=== PATIENT | male | born 1950 | race Caucasian/White ===

== ENCOUNTER 2017-01-06 11:46 | Emergency (ER) | payer SELFPAY ==
[2017-01-06] MEDS ORDERED: NS 0.9% 1000 ML* 1,000 ML IV ONE (11:54)
[2017-01-06] MEDS ORDERED: Lidocaine 1%* 5 ML VIAL INJ ONE (12:08)
[2017-01-06] MEDS ORDERED: Lidocaine 1%* 5 ML VIAL ONE (12:11)
--- NOTE | 2017-01-06 12:26 | RAD ---
HISTORY: Syncope COMPARISONS: None TECHNIQUE: Multiple contiguous axial CT scans were obtained of the head without intravenous contrast. FINDINGS: HEMORRHAGE/INFARCT: There is no hemorrhage or acute infarct. MASSES/SHIFT: There is no mass or shift. EXTRA-AXIAL SPACES: There are no extra-axial fluid collections. SULCI AND VENTRICLES: The sulci and ventricles are normal in size and position for the patient's stated age. CEREBRUM: There are no focal parenchymal abnormalities. BRAINSTEM: There are no focal parenchymal abnormalities. CEREBELLUM: There are no focal parenchymal abnormalities. VESSELS: The vessels are grossly normal. PARANASAL SINUSES: The paranasal sinuses are clear. ORBITS: The orbits are unremarkable. BONES AND SOFT TISSUE: No bone or soft tissue abnormalities are noted. OTHER: None IMPRESSION: NO ACUTE INTRACRANIAL PATHOLOGY.
--- NOTE | 2017-01-06 12:40 | RAD ---
HISTORY: Syncope COMPARISONS: March 07, 2015 VIEWS: 4: Frontal dual-energy and lateral views of the chest. FINDINGS: CARDIOMEDIASTINAL SILHOUETTE: The cardiomediastinal silhouette is normal. ANAHI: The anahi are normal. PLEURA: The costophrenic angles are sharp. No pleural abnormalities are noted. LUNG PARENCHYMA: The lungs are clear. ABDOMEN: The upper abdomen is clear. There is no subphrenic gas. BONES AND SOFT TISSUES: The patient is status post median sternotomy. OTHER: None. IMPRESSION: NO ACTIVE CARDIOPULMONARY DISEASE.
[2017-01-06 13:15] LABS: Hematocrit 42 % (42-52); Hemoglobin 14.2 g/dl (14.0-18.0); Mean Corpuscular HGB Conc 34 g/dl (31-36); Mean Corpuscular Hemoglobin 30 pg (27-31); Mean Corpuscular Volume 90 fL (80-94); Mean Platelet Volume 8 um3 (7.4-10.4); Red Blood Count 4.71 10^6/ul (4.0-5.4); Red Cell Distribution Width 14 % (10.5-15); White Blood Count 8.2 10^3/ul (3.5-10.8)
[2017-01-06] MEDS ORDERED: Lidocaine 1% INJ* 10 MG/ML 30 ML SDV ONE (13:19)
[2017-01-06 13:38] LABS: Troponin I 0.01 ng/mL (<0.04)
[2017-01-06 13:39] LABS: ALT 14 U/L (7-52); AST 19 U/L (13-39); Albumin 4.2 g/dL (3.2-5.2); Alkaline Phosphatase 62 U/L (34-104); Anion Gap 9 mmol/L (2-11); BUN/Creatinine Ratio 21.6 (8-20); Blood Urea Nitrogen 42 mg/dL (6-24); CO2 Carbon Dioxide 24 mmol/L (22-32); Calcium 9.4 mg/dL (8.6-10.3); Chloride 102 mmol/L (101-111); Creatine Kinase 184 U/L (10-223); EGFR African American 44.9 (>60); EGFR Non-African American 34.9 (>60); Globulin 3.4 g/dL (2-4); Glucose 111 mg/dL (70-100); Potassium 4.1 mmol/L (3.5-5.0); Sodium 135 mmol/L (133-145); Total Protein 7.6 g/dL (6.4-8.9)
[2017-01-06 13:40] LABS: Alcohol < 10 mg/dL (<10)
[2017-01-06 13:50] LABS: TSH (Thyroid Stimulating Horm) 1.07 mcIU/mL (0.34-5.60)
[2017-01-06 15:20] VITALS: BP 135/71
--- NOTE | 2017-01-06 17:54 | ED ---
Pauline Benito Edward, scribed for Orlando Harkins MD on 01/06/17 at 1200 . Syncope/Near Syncope - HPI Summary HPI Summary: 66 y/o male presents to ED s/p gradual onset syncopal episode earlier this morning. Unwitnessed LOC lasting "not long". Pt got up from bed and bent over; when he stood up he passed out. Pt states he felt it coming. When he fell, the pt's elbow broke through a window and the pt suffered a laceration on his R elbow. Denies LAUGHLIN, dizziness, blurrred vision, N/V, CP, SOB, palpitations. PMHx HTN. Pt recently changed his BP medications. - History Of Current Complaint Chief Complaint: EDSyncope Time Seen by Provider: 01/06/17 11:54 Hx Obtained From: Patient Onset/Duration: Gradual Onset, Lasting Minutes Timing: Frequency Of Episodes - 1 Context: Unwitnessed, Loss Of Consciousness Activity At Onset: Other - Bending over to pick something up Aggravating Factor(s): Position Change - LOC when he stood up Associated Signs And Symptoms: Other - 2 cm laceration @ R elbow Frequency: Episodes x___ - 1 - Allergies/Home Medications Allergies/Adverse Reactions: Allergies Allergy/AdvReac Type Severity Reaction Status Date / Time No Known Allergies Allergy Verified 11/20/13 20:33 Home Medications: Home Medications Chlorthalidone TAB* [Hygroton TAB*] 25 mg PO DAILY 01/06/17 [History Confirmed 01/06/17] Metoprolol Tartrate TAB* [Lopressor TAB*] 50 mg PO BID 01/06/17 [History Confirmed 01/06/17] Ramipril CAP* [Altace CAP*] 10 mg PO DAILY 01/06/17 [History Confirmed 01/06/17] Simvastatin (NF) [Zocor (NF)] 80 mg PO DAILY 01/06/17 [History Confirmed ] PMH/Surg Hx/FS Hx/Imm Hx Previously Healthy: No Cardiovascular History: Reports: Hx Angina, Hx Coronary Artery Disease, Hx Hypercholesterolemia - HLD, Hx Hypertension, Other Cardiovascular Problems/ Disorders - CARDIAC CATH 2009 & 2010, ANGIOPLASTY 2002 Sensory History: Reports: Hx Contacts or Glasses Opthamlomology History: Reports: Hx Contacts or Glasses - Surgical History Surgery Procedure, Year, and Place: CABG. CARDIAC CATH 2009 & 2010. ANGIOPLASTY 2002 Infectious Disease History: Denies: Traveled Outside the [place] in Last 30 Days - Family History Known Family History: Positive: Cardiac Disease, Hypertension, Other - [place] - Social History Occupation: Employed Full-time Lives: With Family Alcohol Use: None Hx Substance Use: No Substance Use Type: Reports: None Hx Tobacco Use: No Smoking Status (MU): Never Smoked Tobacco Have You Smoked in the Last Year: No Review of Systems Constitutional: Negative Eyes: Negative ENT: Negative Cardiovascular: Negative Respiratory: Negative Gastrointestinal: Negative Genitourinary: Negative Musculoskeletal: Negative Skin: Other - Laceration @ R elbow Positive: Syncope Psychological: Normal All Other Systems Reviewed And Are Negative: Yes Physical Exam - Summary Physical Exam Summary: VITAL SIGNS: Reviewed. GENERAL: Patient is a well-developed and nourished male who is lying comfortable in the stretcher. Patient is not in any acute respiratory distress. HEAD AND FACE: No signs of trauma. No ecchymosis, hematomas or skull depressions. No sinus tenderness. EYES: PERRLA, EOMI x 2, No injected conjunctiva, no nystagmus. EARS: Hearing grossly intact. Ear canals and tympanic membranes are within normal limits. MOUTH: Oropharynx within normal limits. NECK: Supple, trachea is midline, no adenopathy, no JVD, no carotid bruit, no c- spine tenderness, neck with full ROM. CHEST: Symmetric, no tenderness at palpation LUNGS: Clear to auscultation bilaterally. No wheezing or crackles. CVS: Regular rate and rhythm, S1 and S2 present, no murmurs or gallops appreciated. ABDOMEN: Soft, non-tender. No signs of distention. No rebound no guarding, and no masses palpated. Bowel sounds are normal. EXTREMITIES: FROM in all major joints, no edema, no cyanosis or clubbing. NEURO: Alert and oriented x 3. No acute neurological deficits. Speech is normal and follows commands. SKIN: Dry and warm. 2 cm laceration @ R elbow. Triage Information Reviewed: Yes Vital Signs On Initial Exam: Initial Vitals Temp Pulse Resp BP Pulse Ox 96.7 F 77 16 118/80 95 01/06/17 11:48 01/06/17 11:48 01/06/17 11:48 01/06/17 11:48 01/06/17 11:48 Vital Signs Reviewed: Yes Procedures - Procedure Summary Procedure Summary: LACERATION REPAIR: 2 sites 3 cm (continuous sutures 4-0 ethylon) and 4 cm (deep - subcutaneous sutures with 4-0 ethylon gut 5x sutures) around the R elbow 1% lidocaine with epi was used. - Laceration/Wound Repair 1 Location: upper extremity Diagnostics - Vital Signs Vital Signs Temp Pulse Resp BP Pulse Ox 01/06/17 11:48 96.7 F 77 16 118/80 95 - Laboratory Lab Results: Lab Results 01/06/17 01/06/17 01/06/17 Range/Units 12:45 12:45 12:45 WBC 8.2 (3.5-10.8) 10^3/ul RBC 4.71 (4.0-5.4) 10^6/ul Hgb 14.2 (14.0-18.0) g/dl Hct 42 (42-52) % MCV 90 (80-94) fL MCH 30 (27-31) pg MCHC 34 (31-36) g/dl RDW 14 (10.5-15) % Plt Count 224 (150-450) 10^3/ul MPV 8 (7.4-10.4) um3 Neut % (Auto) 75.5 (38-83) % Lymph % (Auto) 16.1 L (25-47) % [place] % (Auto) 6.7 (1-9) % Eos % (Auto) 0.8 (0-6) % Baso % (Auto) 0.9 (0-2) % Absolute Neuts (auto) 6.2 (1.5-7.7) 10^3/ul Absolute Lymphs (auto) 1.3 (1.0-4.8) 10^3/ul Absolute Monos (auto) 0.5 (0-0.8) 10^3/ul Absolute Eos (auto) 0.1 (0-0.6) 10^3/ul Absolute Basos (auto) 0.1 (0-0.2) 10^3/ul Absolute Nucleated RBC 0 10^3/ul Nucleated RBC % 0 Sodium 135 (133-145) mmol/L Potassium 4.1 (3.5-5.0) mmol/L Chloride 102 (101-111) mmol/L Carbon Dioxide 24 (22-32) mmol/L Anion Gap 9 (2-11) mmol/L BUN 42 H (6-24) mg/dL Creatinine 1.94 H (0.67-1.17) mg/dL Est GFR ( Amer) 44.9 (>60) Est GFR (Non-Af Amer) 34.9 (>60) BUN/Creatinine Ratio 21.6 H (8-20) Glucose 111 H (70-100) mg/dL Lactic Acid 1.1 (0.5-2.0) mmol/L Calcium 9.4 (8.6-10.3) mg/dL Magnesium 2.0 (1.9-2.7) mg/dL Total Bilirubin 0.90 (0.2-1.0) mg/dL AST 19 (13-39) U/L ALT 14 (7-52) U/L Alkaline Phosphatase 62 (34-104) U/L Total Creatine Kinase 184 (10-223) U/L Troponin I 0.01 (<0.04) ng/mL B-Natriuretic Peptide ( - 100) pg/mL Total Protein 7.6 (6.4-8.9) g/dL Albumin 4.2 (3.2-5.2) g/dL Globulin 3.4 (2-4) g/dL Albumin/Globulin Ratio 1.2 (1-3) TSH 1.07 (0.34-5.60) mcIU/mL Serum Alcohol < 10 (<10) mg/dL 01/06/17 Range/Units 12:45 WBC (3.5-10.8) 10^3/ul RBC (4.0-5.4) 10^6/ul Hgb (14.0-18.0) g/dl Hct (42-52) % MCV (80-94) fL MCH (27-31) pg MCHC (31-36) g/dl RDW (10.5-15) % Plt Count (150-450) 10^3/ul MPV (7.4-10.4) um3 Neut % (Auto) (38-83) % Lymph % (Auto) (25-47) % [place] % (Auto) (1-9) % Eos % (Auto) (0-6) % Baso % (Auto) (0-2) % Absolute Neuts (auto) (1.5-7.7) 10^3/ul Absolute Lymphs (auto) (1.0-4.8) 10^3/ul Absolute Monos (auto) (0-0.8) 10^3/ul Absolute Eos (auto) (0-0.6) 10^3/ul Absolute Basos (auto) (0-0.2) 10^3/ul Absolute Nucleated RBC 10^3/ul Nucleated RBC % Sodium (133-145) mmol/L Potassium (3.5-5.0) mmol/L Chloride (101-111) mmol/L Carbon Dioxide (22-32) mmol/L Anion Gap (2-11) mmol/L BUN (6-24) mg/dL Creatinine (0.67-1.17) mg/dL Est GFR ( Amer) (>60) Est GFR (Non-Af Amer) (>60) BUN/Creatinine Ratio (8-20) Glucose (70-100) mg/dL Lactic Acid (0.5-2.0) mmol/L Calcium (8.6-10.3) mg/dL Magnesium (1.9-2.7) mg/dL Total Bilirubin (0.2-1.0) mg/dL AST (13-39) U/L ALT (7-52) U/L Alkaline Phosphatase (34-104) U/L Total Creatine Kinase (10-223) U/L Troponin I (<0.04) ng/mL B-Natriuretic Peptide 47 ( - 100) pg/mL Total Protein (6.4-8.9) g/dL Albumin (3.2-5.2) g/dL Globulin (2-4) g/dL Albumin/Globulin Ratio (1-3) TSH (0.34-5.60) mcIU/mL Serum Alcohol (<10) mg/dL Result Diagrams: 01/06/17 12:45 01/06/17 12:45 Lab Statement: Any lab studies that have been ordered have been reviewed, and results considered in the medical decision making process. - Radiology CXR Xray Interpretation: No Acute Changes - NO ACTIVE CARDIOPULMONARY DISEASE Radiology Interpretation Completed By: Radiologist - CT BRAIN CT CT Interpretation: No Acute Changes - NO ACTUE INTRACRANIAL PATHOLOGY CT Interpretation Completed By: Radiologist - EKG 1 EKG Interpretation: 12:02 SR @ 74 bpm. Q wave II III and avF. No ST elevations. Course/Dx Assessment/Plan: 66 y/o male presents to ED s/p gradual onset syncopal episode earlier this morning. Unwitnessed LOC lasting "not long". Pt got up from bed and bent over; when he stood up he passed out. Pt states he felt it coming. When he fell, the pt's elbow broke through a window and the pt suffered a laceration on his R elbow. Denies LAUGHLIN, dizziness, blurrred vision, N/V, CP, SOB, palpitations. PMHx HTN. Pt recently changed his BP medications. EKG SHOWS 12:02 SR @ 74 bpm. Q wave II III and avF. No ST elevations. BRAIN CT SHOWS NO ACUTE INTRACRANIAL PATHOLOGY. CXR SHOWS NO ACTIVE CARDIOPULMONARY DISEASE. I performed a laceration repair - see procedure note. Test results show no significant abnormality except for acute and chronic renal insufficiency. BUN 42 creatinine 1.94. Glucose 111. In the ED course the pt was given IV fluids and was slightly hypotensive. The pts sx started after he started taking new Hydrochlorothiazide which is a new medication. At this point the pt had positive orthostatic HTN. However, he refuses to stay in the ED and reports that he will stop taking Hydrochlorothiazide until he sees his PCP. Therefore I will d/c with f/u with . The pt was given instructions to return if he develops other sx. The pt will not be driving or using heavy machinery until cleared by PCP. Discussed with Dr. Aguila who agrees to d/c the patient and agrees for the pt to stop taking Hydrochlorothiazide. I discussed all the findings and test results with the patient. Patient was instructed to return to the emergency room immediately if any of the symptoms return or worsens. Plan of care was discussed with the patient and understands and agrees. All questions were answered at patient satisfaction. There were no further complaints or concerns. - Diagnoses Provider Diagnoses: Renal insufficiency, Orthostatic hypertension, Syncope - Physician Notifications Discussed Care of Patient With: Juliocesar Aguila Time Discussed With Above Provider: 14:45 Discharge - Discharge Plan Condition: Stable Disposition: HOME Patient Education Materials: Syncope (ED), Hypertension (ED), Chronic Kidney Disease (ED) Referrals: Katie Kan MD [Primary Care Provider] - 3 Days (PLEASE F/U IN 2-3 DAYS) Juliocesar Aguila MD [Medical Doctor] - 3 Days (PLEASE F/U IN 2-3 DAYS) The documentation as recorded by the julianoibPauline torres Edward accurately reflects the service I personally performed and the decisions made by , Orlando Harkins MD.
== END 2017-01-06 15:20 | disposition home or self-care (01) ==
LOC: ED 11:46
DX: N28.9 Disorder of kidney and ureter, unspecified (principal); I95.1 Orthostatic hypotension; R55 Syncope and collapse; S51.011A Laceration without foreign body of right elbow, initial encounter; W01.110A Fall on same level from slipping, tripping and stumbling with subsequent striking against sharp glass, initial encounter; Y93.9 Activity, unspecified; Y92.9 Unspecified place or not applicable; Z86.79 Personal history of other diseases of the circulatory system
CPT/HCPCS: 12002; 36415; 70450; 71020; 80053; 80320; 82550; 83605; 83735; 83880; 84443; 84484; 85025; 93005; 99282; G0480; J2001

== ENCOUNTER 2017-05-07 07:06 | Inpatient (IN) | payer BC, MEDICARE ==
--- NOTE | 2017-04-24 13:21 | HP ---
HISTORY AND PHYSICAL: DATE OF SURGERY: 05/07/17 DATE OF OFFICE VISIT: 04/24/17 SURGEON: Yvette Moore MD * (DICTATED BY GREY RICHARD) PROCEDURE: Right total hip arthroplasty. CHIEF COMPLAINT: Right hip pain. HISTORY OF PRESENT ILLNESS: Mr. Vidal is a 67-year-old gentleman with continued complaints of right hip pain. Despite conservative management, he has end-stage osteoarthritis on x-rays. He has elected to proceed with a right total hip arthroplasty, which is scheduled for 05/07/[address] Moore. PAST MEDICAL HISTORY: Hypertension, high cholesterol, prior NM. PAST SURGICAL HISTORY: CABG in 2010. CURRENT MEDICATIONS: 1. Simvastatin 80 mg daily. 2. Ramipril 10 mg daily. 3. Metoprolol 50 mg twice a day. 4. Aspirin 325 two tabs every morning. 5. Tylenol as needed. ALLERGIES: None. FAMILY HISTORY: Heart disease, stroke, RA, cancer, and hypertension. SOCIAL HISTORY: This 67-year-old gentleman, lives with his spouse. He does not smoke or use drugs. Uses occasional alcohol. REVIEW OF SYSTEMS: A complete 14-point review of systems was reviewed with the patient, was all negative or noncontributory. He denies history of DVT, PE, hepatitis C, or HIV. PHYSICAL EXAMINATION GENERAL: He is well developed, well nourished, in no acute distress. VITAL SIGNS: He stands 6 feet 1 inch tall, weighs 270 pounds. Blood pressure is 122/82, his heart rate is 71. HEENT: Normocephalic, atraumatic. NECK: Supple. No palpable lymph nodes. PULMONARY: The lungs are clear to auscultation bilaterally. CARDIO: Regular rate and rhythm. Strong S1, S2. ABDOMEN: Soft, nontender, and nondistended. MUSCULOSKELETAL: Right lower extremity, skin is intact. There are no open wounds or abrasions. He walks with an antalgic type gait, favoring his right hip. He has decreased internal and external rotation of right hip. 2+ dorsalis pedis pulses, intact sensation in his lower extremities. Muscle group strengths are intact at 5/5. NEUROLOGICAL: Alert and oriented x3. Cranial nerves II through XII are intact. ASSESSMENT AND PLAN: Mr. Vidal is a 67-year-old gentleman with continued complaints of right hip pain secondary to advanced osteoarthritis. He has failed conservative management and elected to proceed with a right total hip arthroplasty which is scheduled for 05/07/[address] Moore discussed the risks and benefits of the surgery at today's visit and all of his questions were answered. Coumadin, Colace, and Percocet were sent to his pharmacy for postoperative pain control and DVT prophylaxis. He will see Dr. Moore back 2 weeks after the surgery. GREY RICHARD [id number]/[facility] #: [id number] MTDJacob
[~2017-05-07 07:06] MED LIST: Buffered Lidocaine 0.9% SYRIN* 5 ML/SYR SYRINGE INTRADERM ONE; Famotidine IV* 10 MG/ML 2 ML (20 mg) IV ONE; Gabapentin CAP(*) 300 MG PO ONE
[2017-05-07] MEDS ORDERED: Famotidine IV* 10 MG/ML 2 ML (20 mg) ONE (07:21)
[2017-05-07] MEDS ORDERED: Gabapentin CAP(*) 300 MG ONE (07:21)
[2017-05-07] MEDS ORDERED: Buffered Lidocaine 0.9% SYRIN* 5 ML/SYR SYRINGE ONE (07:22)
[2017-05-07] MEDS ORDERED: ceFAZolin 1 GM in Dextrose (*) 1 GM/50 ML BAG IVPB ONE (07:22)
[2017-05-07] MEDS ORDERED: ceFAZolin 2 GM PREMIX (*) 2 GM/50 ML BAG IVPB ONE (07:22)
[2017-05-07] MEDS ORDERED: DiMENhydriNATE IV* 50 MG/ML VIAL IV PUSH PRN (08:45)
[2017-05-07] MEDS ORDERED: HYDROmorphone INJ* 1 MG/ML CARPUJECT SYRINGE IV PRN (08:45)
[2017-05-07] MEDS ORDERED: oxyCODONE/Acetamin 5/325 MG* TAB PO PRN ×3 (08:45→11:49)
[2017-05-07] MEDS ORDERED: Gabapentin CAP(*) 100 MG PO ONE (08:46)
[2017-05-07] MEDS ORDERED: Ketorolac INJ* 30 MG/ML 1 ML VIAL ONE (08:57)
[2017-05-07] MEDS ORDERED: Midazolam* 1 MG/ML 2 ML VIAL (2 MG) ONE (08:57)
[2017-05-07] MEDS ORDERED: Propofol* 10 MG/ML 20 ML BTL IV PUSH ONE (08:57)
[2017-05-07] MEDS ORDERED: Dexamethasone IV* 4 MG/ML 1 ML (4 MG) ONE (08:57)
[2017-05-07] MEDS ORDERED: fentaNYL* 50 MCG/ML 2 ML VIAL (100 MCG VIAL) ONE (08:57)
[2017-05-07] MEDS ORDERED: Ondansetron INJ* 2 MG/ML VIAL ONE (08:57)
[2017-05-07] MEDS ORDERED: Lidocaine 2% PF * 5 ML VIAL ONE (08:57)
[2017-05-07] MEDS ORDERED: Morphine PF AMP (0.5MG/ML)* 5 MG/10 ML AMP ONE (09:10)
[2017-05-07] MEDS ORDERED: KETAMINE HCL* 50 MG/ML 10 ML VIAL ONE (10:10)
[2017-05-07] MEDS ORDERED: EPHEDrine (Pressors)* 50 MG/ML VIAL ONE (10:47)
[2017-05-07] MEDS ORDERED: Phenylephrine IV* 40 MCG/ML 10 ML SYRINGE ONE (10:47)
[2017-05-07] MEDS ORDERED: diPHENhydraMINE IV* 50 MG/ML 1 ml VIAL (BENADRYL) IV PRN (10:52)
[2017-05-07] MEDS ORDERED: oxyCODONE TAB* 5 MG TAB PO PRN (10:52)
[2017-05-07] MEDS ORDERED: Bisacodyl SUPP* 10 MG SUPP PR PRN (10:52)
[2017-05-07] MEDS ORDERED: Acetaminophen TAB* 325 MG PO PRN (10:52)
[2017-05-07] MEDS ORDERED: Ondansetron INJ* 2 MG/ML VIAL IV PRN (10:52)
[2017-05-07] MEDS ORDERED: Morphine INJ* 2 MG/ML 1 ML SYRINGE (TWO MG - NEW SYRINGE VERSION) IV PRN (10:52)
[2017-05-07] MEDS ORDERED: Phenylephrine INJ* 10 MG/ML 1 ML VIAL (10 MG) ONE (10:56)
[2017-05-07] MEDS ORDERED: Glycopyrrolate IV* 0.2 MG/ML 1 ML VIAL ONE (10:58)
[2017-05-07] MEDS ORDERED: Naloxone* 0.4 MG/ML 1 ML VIAL IV PRN (11:42)
[2017-05-07] MEDS ORDERED: Nalbuphine* 20 MG/ML 1 ML VIAL IV PRN (11:42)
--- NOTE | 2017-05-07 12:39 | RAD ---
INDICATION: Right total hip placement surgery. TECHNIQUE: An AP view of the pelvis was obtained in the operating room. FINDINGS: There is an acetabular prostheses in place and a femoral prostheses template in place. The bones and prostheses are in normal alignment. IMPRESSION: INTRAOPERATIVE CONTROL FILMS.
[2017-05-07] MEDS ORDERED: Gabapentin CAP(*) 100 MG ONE (13:38)
--- NOTE | 2017-05-07 14:35 | RAD ---
HISTORY: Status post right hip arthroplasty COMPARISONS: April 24, 2017 VIEWS: 4, Frontal view of the pelvis with frontal and crosstable lateral views of the right hip FINDINGS: BONE DENSITY: Normal. BONES: The patient is status post right hip arthroplasty. There is no hardware failure or osteolysis. JOINTS: The patient is status post right hip arthroplasty. There is moderate osteoarthritis of the left hip. ALIGNMENT: There is no dislocation. SOFT TISSUES: Unremarkable. OTHER FINDINGS: None. IMPRESSION: STATUS POST RIGHT HIP ARTHROPLASTY
[2017-05-07] MEDS ORDERED: Warfarin TAB(*) 6 MG PO ONE (17:00)
[2017-05-07] MEDS: Ibuprofen TAB* 600 MG PO SCH ×2 (17:57→23:36)
[2017-05-07] MEDS: ceFAZolin 1 GM in Dextrose (*) 1 GM/50 ML BAG IVPB SCH (17:58)
[2017-05-07] MEDS ORDERED: ceFAZolin 1 GM VIAL(*) 1 GM in NS 0.9% 50 ML* 50 ML IVPB SCH (18:00)
[2017-05-07] MEDS: Docusate CAP* 100 MG PO SCH (20:59)
[2017-05-07] MEDS: Atorvastatin* 40 MG TAB PO SCH (20:59)
[2017-05-07] MEDS ORDERED: Metoprolol Tartrate TAB* 50 mg PO SCH (21:00)
[2017-05-07] MEDS: Metoprolol Tartrate TAB* 50 mg PO SCH (21:05)
--- NOTE | 2017-05-07 22:36 | CONS ---
CC: Dr. Arturo Kan; Dr. Moore * CONSULTATION REPORT: DATE OF CONSULT: 05/07/17 PRIMARY CARE PROVIDER: Dr. Arturo Kan. ATTENDING PHYSICIAN: Dr. Tay Saini (dictated by Enzo Gayle NP). PHYSICIAN REQUESTING CONSULTATION: Dr. Yvette Moore. REASON FOR CONSULTATION: Co-medical management in a patient with a history of hypertension, hyperlipidemia, coronary artery disease, and obesity. HISTORY OF PRESENT ILLNESS: Mr. Vidal is a 67-year-old male with past medical history significant for hypertension, hyperlipidemia, coronary artery disease status post ME and coronary artery bypass graft, osteoarthritis and obesity, who presented to the hospital today for an elective right total hip arthroplasty with Dr. Moore after failing conservative medical management. Leading up to his surgery, the patient states that he has been in his usual state of health. He denies any fever, chills, chest pain, shortness of breath, cough, nausea, vomiting, diarrhea, difficulty urinating. Postoperatively, the patient states he is doing well. He reports his pain is controlled. The hospitalists were asked to assist with the co-medical management of this patient during his hospitalization. PAST MEDICAL HISTORY: 1. Hypertension. 2. Hyperlipidemia. 3. Coronary artery disease with prior ME. 4. Osteoarthritis. 5. Obesity. PAST SURGICAL HISTORY: 1. Status post coronary artery bypass graft in 2010 with four vessels. 2. Status post cardiac stent placement in 2002. HOME MEDICATIONS: Include: 1. Simvastatin 80 mg oral daily. 2. Ramipril 20 mg oral daily. 3. Metoprolol 500 mg oral twice daily. 4. Aspirin 325 mg two tablets every morning. 5. Acetaminophen 650 mg oral every 8 hours as needed for pain. 6. Hydrochlorothiazide 12.5 mg oral daily. ALLERGIES: No known drug allergies. FAMILY HISTORY: The patient has a family history of heart disease, stroke, rheumatoid arthritis, cancer, and hypertension. SOCIAL HISTORY: The patient is a former smoker, quit smoking in 2002. He occasionally drinks alcohol. He denies recreational drug use. His , Nisha Viadl will be his surrogate decision maker in the event he is unable to make decisions for himself. REVIEW OF SYSTEMS: I performed a 14-point review of systems. All the pertinent positives and negatives are mentioned in the history of present illness. The remaining review of systems are negative. PHYSICAL EXAMINATION: Vital Signs: Temperature 96.8, heart rate 66, respiratory rate 18, O2 sat 98% on room air, blood pressure 100/60. General Appearance: The patient is alert, pleasant and appears to be in no acute distress. Head: Normocephalic, atraumatic. EENT: Pupils are equal and reactive to light. Extraocular movements are intact. Neck is supple. Cardiovascular: Regular rate and rhythm. S1 and S2 present. There are no murmurs, rubs, or gallops heard. Respiratory: There is no accessory muscle use. The lungs are clear to auscultation bilaterally. Abdomen: Soft, nontender, and nondistended. There are bowel sounds present x4. Extremities: There is no lower extremity edema. DP and PT pulses are 2+ and symmetric. Musculoskeletal: There is no clubbing or cyanosis noted. The patient exhibits good strength in all extremities. Skin: There are no rashes or abnormalities seen. The patient has a clean, dry, and intact dressing to his right knee. Psychological: The patient is calm and cooperative. Cranial nerves II through XII are grossly intact. The patient is able to move all extremities. DIAGNOSTIC STUDIES/LABORATORY DATA: Preoperative data from April 24, sodium 137, potassium 4.9, chloride 109, CO2 26, BUN 23, creatinine 1.06, glucose 92. White blood cell count 6.7, hemoglobin 13.6, hematocrit 41, and platelet count 183. EKG shows a sinus rhythm, rate of 62 and no acute signs of ischemia. Similar to previous EKG from 01/06/17. IMPRESSION: Mr. Vidal is a 67-year-old male with past medical history significant for hypertension, hyperlipidemia, coronary artery disease with prior myocardial infarction, osteoarthritis and obesity, who presented to the hospital today for an elective right total hip arthroplasty with Dr. Moore. Hospitalists were asked to assist with co-medical management of this patient during his hospitalization. ASSESSMENT/PLAN: 1. Status post right total hip arthroplasty. Postop day. Management will be per Orthopedic Surgery. The patient will be placed on a bowel regimen and given pain medication for pain control. He will have physical therapy and occupational therapy starting tomorrow. He will have a urinary catheter in place until postop day 1. We will trend his hemoglobin and hematocrit. 2. History of coronary artery disease. The patient will be continued on his home metoprolol, simvastatin and will be resumed on his aspirin when okay with Orthopedic Surgery. 3. Hypertension. The patient reports that he had been hypertensive prior to surgery and Dr. Aguila his acid loader had adjusted his medications prior to surgery. In his postoperative period, he is hypotensive. We will continue his metoprolol with hold parameters, but we are going to hold his ramipril and HCTZ and resume when appropriate. 4. Hyperlipidemia. We will continue the patient's statin. 5. Obesity. The patient's BMI is 36. 6. Fluids, electrolytes, and nutrition. The patient will be on a clear liquid , advance diet as tolerated to a regular diet. 7. DVT prophylaxis. The patient will be on Lovenox bridged to warfarin per Orthopedic Surgery. 8. Code status. Full code. 9. Disposition. Inpatient with disposition per Orthopedic Surgery. TIME SPENT: Time for this consultation was approximately 45 minutes, greater than half of that was spent with the patient and discussing medications, past medical history, and the events leading up to his arrival today, and performing a physical examination. The case has been reviewed with the attending, Dr. Saini, who agrees with the plan of care. ENZO GAYLE, CHRISTY [id number]/[facility] #: [id number] ASHLEY
[2017-05-07 22:46] LABS: Hematocrit 34 % (42-52); Hemoglobin 11.3 g/dl (14.0-18.0)
[2017-05-08] MEDS: ceFAZolin 1 GM in Dextrose (*) 1 GM/50 ML BAG IVPB SCH ×2 (01:56→09:32)
--- NOTE | 2017-05-08 03:44 | OP ---
DATE OF OPERATION: 05/07/17 - ROOM #350 DATE OF : 52 SURGEON: Yvette Moore MD WAITER/WAITRESS BAR: GREY Harry. Ms. Henry did help throughout the procedure with preparation of the leg, wound retraction, manipulation of the hip and wound closure. ANESTHESIOLOGIST: Dr. Harry. ANESTHESIA: Spinal. PRE-OP DIAGNOSIS: Severe end-stage degenerative osteoarthritis of the right hip joint. POST-OP DIAGNOSIS: Severe end-stage degenerative osteoarthritis of the right hip joint. OPERATIVE PROCEDURE: Right total hip arthroplasty. ESTIMATED BLOOD LOSS: 600 cc. COMPLICATIONS: None. SPECIMEN: Femoral head and acetabular reaming sent to pathology. HARDWARE USED: This is an uncemented [employer] total hip. For the cup, a Trident hemispherical acetabular shell, 56F, a 25 mm screw was used. For the liner, a Trident X3 0-degree polyethylene insert 40F. For the stem, an Accolade TMZF size 3 with a 132-degree neck. For the head, a Biolox delta ceramic femoral head 40+ 4. BRIEF HISTORY/INDICATIONS: Mr. Kirill Vidal is a 67-year-old gentleman with months of increasingly severe right hip pain. He failed conservative treatment with anti-inflammatories, pain medication, physical therapy and activity modification. Radiographs showed severe end-stage arthritis of the right hip. The patient elected to undergo right total hip arthroplasty due to continued pain and decreased quality of life. Informed consent was obtained from the patient. He understood the risks of surgery included but were not limited to bleeding, infection, damage to nearby structures, continued pain, need for further surgery, intraoperative fracture, nerve palsy, hardware failure or loosening, dislocation, leg length discrepancy , stroke, heart attack, blood clot and . He wished to proceed. INTRAOPERATIVE FINDINGS: Intraoperatively, the patient was noted to have severe end-stage arthritis with complete loss of cartilage along the femoral head and acetabulum. He had extensive osteophyte formation. DESCRIPTION OF PROCEDURE: Mr. Vidal was identified in the preanesthesia unit. His right lower extremity was marked as the correct operative side. Informed consent was signed and placed in the chart. The patient was taken to the operating room and placed under spinal anesthesia. A Gonzalez catheter was placed. He was placed in the left lateral decubitus position on the peg board. All bony prominences were well padded. The right lower extremity was prepped and draped in the usual sterile fashion. Preop time-out was made to correctly identify the patient's side and site. Appropriate perioperative antibiotics were given within 1 hour of incision. A 15-cm posterior hip incision was made with a #10 blade and carried down to the lateral fascia layer. Lateral fascia layer was incised in line with the skin incision. Charnley retractor was placed. Piriformis and conjoint tendons were identified and elevated off the posterolateral femur using electrocautery. These were tagged with #5 Ethibond. Electro-cautery was next used to make a standard posterolateral capsular flap and this was also tagged with #5 Ethibond. The hip was carefully dislocated. Lesser troch to center of the femoral head measured 62 mm. The oscillating saw was used to make the appropriate femoral neck cut. The femur was carefully retracted anteriorly. After appropriate placement of retractors, the acetabulum was visualized. A long-handled knife was used to sharply remove any remaining labrum from the acetabular rim. The acetabulum was sequentially reamed up to a size 55. A bleeding subchondral bone bed was obtained. A 55 trial head had good fit. Final plant chosen was a 56F Trident hemispherical cut. This was impacted into the acetabulum without difficulty. The cup was stable with appropriate anteversion and abduction angle. A single 25-mm cancellous bone screw was placed to the superoposterior quadrant for extra stability. A Trident X3 0- degree liner 40F was chosen. This was impacted into the acetabulum without difficulty. Stability of the liner was checked and rechecked and noted to be stable. A 132 degree neck trial was chosen as well as a 40 +0 femoral head trial. The lesser troch to the center of the femoral head measured 64 mm. The hip was reduced and taken through range of motion. The hip was stable in all positions. There was appropriate soft tissue tension and leg length. The hip was carefully dislocated. All trials were removed. Final implant chosen was an Accolade TMZF size 3 with a 132-degree neck. This was impacted into the femoral canal without difficulty. Good stability was obtained as well as appropriate anteversion. A Biolox delta ceramic V40 femoral head was chosen 40 with a +4 adapter. Lesser troch to center of the femoral head measured 66 mm. The femoral head was impacted on to the femoral neck without difficulty. The hip was carefully reduced and taken through range of motion. The hip was stable in all positions. The hip was copiously irrigated with sterile saline. The previously tagged capsule and tendons were reapproximated to the posterolateral femur through 2 trochanteric drill holes. The fascial layer was closed using interrupted #1 Vicryl. The rest of the incision was closed in a layered fashion using 0 and 2- 0 Vicryl. Skin was closed using running 3-0 Monocryl with Dermabond. Sterile Adaptic, 4x4, and paper tape were used to cover the incision. The patient's anesthesia was reversed without difficulty. He was taken to the PACU in stable condition. Intended weightbearing will be weightbearing as tolerated. Intended DVT prophylaxis will be Coumadin with a Lovenox bridge. [id number]/[facility] #: [id number] ASHLEY
[2017-05-08] MEDS: Ibuprofen TAB* 600 MG PO SCH ×2 (05:46→11:39)
[2017-05-08 05:54] LABS: Hematocrit 33 % (42-52); Hemoglobin 10.8 g/dl (14.0-18.0)
[2017-05-08 06:08] LABS: BUN/Creatinine Ratio 19.8 (8-20); Calcium 8.8 mg/dL (8.6-10.3); EGFR African American 89.9 (>60); EGFR Non-African American 69.9 (>60); Potassium 4.8 mmol/L (3.5-5.0)
[2017-05-08] MEDS: Docusate CAP* 100 MG PO SCH ×2 (08:11→21:45)
[2017-05-08] MEDS: Vitamin THERAPEUTIC TAB PO SCH (08:12)
[2017-05-08] MEDS: Metoprolol Tartrate TAB* 50 mg PO SCH ×2 (08:12→21:46)
[2017-05-08] MEDS: oxyCODONE/Acetamin 5/325 MG* TAB PO PRN ×3 (08:12→20:25)
[2017-05-08] MEDS ORDERED: Ramipril CAP* 10 MG PO SCH (09:00)
[2017-05-08] MEDS ORDERED: Hydrochlorothiazide TAB* 25 MG PO SCH (09:00)
--- NOTE | 2017-05-08 10:03 | PN ---
Progress Note - Progress Note Date of Service: 05/08/17 SOAP: Subjective: 67 y/o male s/p R SHAZIA by Dr. Moore 05/07/2017. Patient reports feeling well, working well with PT, possibe home tomorrow, pain controlled. + bleeding at dressing site. VSS afebrile overnight. H&H stable. Objective: GEneral- well appearing, easily moves from sitting to standing position without difficulty, dressed, sitting in chair. MSK- surgical dressing with merissa blood at distal aspect, dressing removed, incision appears c/d/i, dried blood ~ 1cm on proximal gauze, no induration, ecchymosis surrounding incision, no warmth. new dressing placed, will continue to monitor. Vital Signs Temp 97.7 F 05/08/17 07:20 Pulse 59 05/08/17 07:20 Resp 16 05/08/17 09:55 BP 123/62 05/08/17 07:20 Pulse Ox 98 05/08/17 08:14 Intake & Output 05/07/17 05/08/17 05/08/17 18:59 06:59 18:59 Intake Total 2900 1450 480 Output Total 1100 2675 350 Balance 1800 -1225 130 Weight 117.934 kg Intake: IV Fluids 2900 980 LR 2900 980 IVPB 50 ABX - CEFAZOLIN 50 Oral 420 480 Output: Urine 350 Gonzalez 800 2675 Estimated Blood Loss 300 Assessment: 67 y/o male s/p R SHAZIA by Dr. Moore 05/07/2017. Plan: - DVT prophylaxis- coumadin, lovenox - Continue to monitor incision site, nursing staff aware. - Continue to work with PT/ OT - POssible DC tomorrow. Laboratory Results - last 24 hr 05/07/17 05/08/17 05/08/17 22:25 05:47 05:47 Hgb 11.3 L 10.8 L Hct 34 L 33 L INR (Anticoag Therapy) 1.17 H Sodium Potassium Chloride Carbon Dioxide Anion Gap BUN Creatinine Est GFR ( Amer) Est GFR (Non-Af Amer) BUN/Creatinine Ratio Glucose Calcium 05/08/17 05:47 Hgb Hct INR (Anticoag Therapy) Sodium 133 Potassium 4.8 Chloride 102 Carbon Dioxide 26 Anion Gap 5 BUN 21 Creatinine 1.06 Est GFR ( Amer) 89.9 Est GFR (Non-Af Amer) 69.9 BUN/Creatinine Ratio 19.8 Glucose 130 H Calcium 8.8 Active Medications Generic Name Dose Route Start Last Admin Trade Name Freq PRN Reason Stop Dose Admin Acetaminophen 650 mg 05/07/17 10:52 Tylenol Tab* PO Q4H PRN PAIN OR TEMPERATURE Atorvastatin Calcium 40 mg 05/07/17 21:00 05/07/17 20:59 Lipitor* PO 40 mg BEDTIME JESSICA Administration Bisacodyl 10 mg 05/07/17 10:52 Dulcolax Supp* PA DAILY PRN constipation Diphenhydramine HCl 25 mg 05/07/17 10:52 Benadryl Iv* IV Q6H PRN itching Docusate Sodium 100 mg 05/07/17 21:00 05/08/17 08:11 Colace Cap* PO 100 mg BID JESSICA Administration Enoxaparin Sodium 30 mg 05/08/17 11:00 Lovenox(*) SUBCUT Q24H JESSICA Lactated Ringer's 1,000 mls @ 100 mls/hr 05/07/17 11:00 05/08/17 01:52 Lactated Ringers 1000 Ml Bag* IV 100 mls/hr PER RATE JESSICA Administration Cefazolin Sodium/Dextrose 1 gm in 50 mls @ 200 mls/hr 05/07/17 18:00 09:32 Kefzol 1 Gm In Dextrose Duplex (*) IVPB 05/08/17 10:14 200 mls/hr Q8H JESSICA Administration Ibuprofen 600 mg 05/07/17 18:00 05/08/17 05:46 Motrin Tab* PO 05/08/17 12:00 600 mg Q6H JESSICA Administration Lactulose 30 ml 05/07/17 10:52 Lactulose* PO Q6H PRN constipation Metoprolol Tartrate 50 mg 05/07/17 21:00 05/08/17 08:12 Lopressor Tab* PO 50 mg BID JESSICA Administration Morphine Sulfate 2 mg 05/07/17 10:52 Morphine Inj (Syringe)* IV Q2H PRN PAIN - UNCONTROLLED Multivitamins 1 tab 05/08/17 09:00 05/08/17 08:12 Theragran Tab* PO 1 tab DAILY JESSICA Administration Ondansetron HCl 4 mg 05/07/17 10:52 Zofran Inj* IV Q6H PRN nausea Oxycodone HCl 10 mg 05/07/17 10:52 Roxycodone Tab* PO Q4H PRN PAIN - SEVERE Oxycodone/Acetaminophen 1 tab 05/07/17 10:52 05/08/17 04:07 Percocet 5/325 Tab* PO 1 tab Q4H PRN Administration PAIN - MODERATE Oxycodone/Acetaminophen 2 tab 05/07/17 10:52 05/08/17 08:12 Percocet 5/325 Tab* PO 2 tab Q4H PRN Administration PAIN - MODERATE TO SEVERE Pharmacy Profile Note 1 note 05/07/17 17:00 05/07/17 17:08 Coumadin Daily Reminder* FOLLOW UP 1 note 1700 JESSICA Administration
[2017-05-08] MEDS: Enoxaparin(*) 30 MG/0.3 ML SYR SUBCUT SCH (11:39)
--- NOTE | 2017-05-08 16:03 | PN ---
Subjective Date of Service: 05/08/17 Interval History: Patient seen and examined. OOB to chair, family at bedside. No acute overnight events. Feeling well, states anterior thigh on operative side feels tight. Otherwise pain is well controlled. No calf tenderness, no SOB, no chest pain, no n/v, passing flatus. Objective Active Medications: Acetaminophen (Tylenol Tab*) 650 mg PO Q4H PRN PRN Reason: PAIN OR TEMPERATURE Atorvastatin Calcium (Lipitor*) 40 mg PO BEDTIME [facility] Last Admin: 05/07/17 20:59 Dose: 40 mg Bisacodyl (Dulcolax Supp*) 10 mg PA DAILY PRN PRN Reason: constipation Diphenhydramine HCl (Benadryl Iv*) 25 mg IV Q6H PRN PRN Reason: itching Docusate Sodium (Colace Cap*) 100 mg PO BID [facility] Last Admin: 05/08/17 08:11 Dose: 100 mg Enoxaparin Sodium (Lovenox(*)) 30 mg SUBCUT Q24H [facility] Last Admin: 05/08/17 11:39 Dose: 30 mg Lactated Ringer's (Lactated Ringers 1000 Ml Bag*) 1,000 mls @ 100 mls/hr IV PER RATE [facility] Last Admin: 05/08/17 01:52 Dose: 100 mls/hr Lactulose (Lactulose*) 30 ml PO Q6H PRN PRN Reason: constipation Metoprolol Tartrate (Lopressor Tab*) 50 mg PO BID [facility] Last Admin: 05/08/17 08:12 Dose: 50 mg Morphine Sulfate (Morphine Inj (Syringe)*) 2 mg IV Q2H PRN PRN Reason: PAIN - UNCONTROLLED Multivitamins (Theragran Tab*) 1 tab PO DAILY [facility] Last Admin: 05/08/17 08:12 Dose: 1 tab Ondansetron HCl (Zofran Inj*) 4 mg IV Q6H PRN PRN Reason: nausea Oxycodone HCl (Roxycodone Tab*) 10 mg PO Q4H PRN PRN Reason: PAIN - SEVERE Oxycodone/Acetaminophen (Percocet 5/325 Tab*) 1 tab PO Q4H PRN PRN Reason: PAIN - MODERATE Last Admin: 05/08/17 04:07 Dose: 1 tab Oxycodone/Acetaminophen (Percocet 5/325 Tab*) 2 tab PO Q4H PRN PRN Reason: PAIN - MODERATE TO SEVERE Last Admin: 05/08/17 12:55 Dose: 2 tab Pharmacy Profile Note (Coumadin Daily Reminder*) 1 note FOLLOW UP 1700 JESSICA Last Admin: 05/07/17 17:08 Dose: 1 note Vital Signs - 8 hr 05/08/17 05/08/17 05/08/17 08:12 08:14 08:16 Temperature Pulse Rate Respiratory 16 16 16 Rate Blood Pressure (mmHg) O2 Sat by Pulse 98 Oximetry 05/08/17 05/08/17 05/08/17 09:55 11:08 11:11 Temperature 98.8 F 98.8 F Pulse Rate 73 67 Respiratory 16 18 18 Rate Blood Pressure 107/54 (mmHg) O2 Sat by Pulse 98 96 Oximetry 05/08/17 12:55 Temperature Pulse Rate Respiratory 16 Rate Blood Pressure (mmHg) O2 Sat by Pulse Oximetry Oxygen Devices in Use Now: None Eyes: No Scleral Icterus, PERRLA Ears/Nose/Mouth/Throat: NL Teeth, Lips, Gums, Mucous Membranes Moist Neck: NL Appearance and Movements; NL JVP Respiratory: Symmetrical Chest Expansion and Respiratory Effort, Clear to Auscultation Cardiovascular: NL Sounds; No Murmurs; No JVD, RRR Abdominal: NL Sounds; No Tenderness; No Distention Extremities: No Edema - dressing CDI Skin: No Rash or Ulcers Neurological: Alert and Oriented x 3, NL Muscle Strength and Tone Nutrition: Taking PO's Result Diagrams: 05/08/17 05:47 05/08/17 05:47 Assess/Plan/Problems-Billing Assessment: - Patient Problems (1) Osteoarthritis of right hip Code(s): M16.11 - UNILATERAL PRIMARY OSTEOARTHRITIS, RIGHT HIP SNOMED Code(s) : 224140488782848 Comment: - POD1, [facility] POC as per ortho - OOB with PT, hip precautions, pain control - DVT prophy with lovenox - Bowel regimen while on narcotic pain mgmt - H&H stable - Monitor lytes and renal fx (2) CAD (coronary artery disease) Code(s): I25.10 - ATHSCL HEART DISEASE OF [place] CORONARY ARTERY W/O ANG PCTRS SNOMED Code(s): 77824936 Comment: - Currently stable - Holding BB for now due to low BP - Restart ASA when clear by surgery (3) HLD (hyperlipidemia) Code(s): E78.5 - HYPERLIPIDEMIA, UNSPECIFIED SNOMED Code(s): 60590161 Comment: - Continue statin (4) HTN (hypertension) Code(s): I10 - ESSENTIAL (PRIMARY) HYPERTENSION SNOMED Code(s): 02574845 Comment: - Holding BB, ramipril and HCTZ 2/2 post op hypotension Status and Disposition: Remain inpatient until clear by surgery. Clinically stable. Progressing. Counseling and/or Coordination of Care Minutes: Coordinated with patient and staff. Time spent >45mins
[2017-05-08] MEDS ORDERED: Warfarin TAB(*) 6 MG PO ONE (18:00)
[2017-05-08] MEDS: Atorvastatin* 40 MG TAB PO SCH (21:45)
[2017-05-09 06:03] LABS: Hematocrit 31 % (42-52); Hemoglobin 10.5 g/dl (14.0-18.0)
[2017-05-09] MEDS: Docusate CAP* 100 MG PO SCH (08:13)
[2017-05-09] MEDS: Metoprolol Tartrate TAB* 50 mg PO SCH (08:13)
[2017-05-09] MEDS: Vitamin THERAPEUTIC TAB PO SCH (08:13)
[2017-05-09] MEDS: oxyCODONE/Acetamin 5/325 MG* TAB PO PRN ×2 (08:14→13:47)
--- NOTE | 2017-05-09 10:11 | PN ---
Progress Note - Progress Note Date of Service: 05/09/17 SOAP: Subjective: Pt. is alert, reports pain is moderate. Objective: RLE - dressing changed, inc c/d/i. distally nvi. Vital Signs: Temp Pulse Resp BP Pulse Ox 100.3 F 85 18 157/79 100 05/09/17 07:53 05/09/17 07:53 05/09/17 08:14 05/09/17 07:53 05/09/17 07:53 Laboratory Results - last 24 hr 05/09/17 05/09/17 05:45 05:45 Hgb 10.5 L Hct 31 L INR (Anticoag Therapy) 1.22 H Assessment: 67 yo M pod 2 s/p RTHA Plan: wbat rle post hip precautions pt/ot lovenox today, home on ecasa 325 bid plan d/c to home with vns today
--- NOTE | 2017-05-09 10:47 | PN ---
Subjective Date of Service: 05/09/17 Interval History: Patient seen and examined. No acute overnight events. Participating in therapy without issue. Pain well controlled. States his right anterior thigh still feels very tight and sore. Denies chest pain, no SOB, no n/v. Passing flatus, small BM but still feels constipated. Objective Active Medications: Acetaminophen (Tylenol Tab*) 650 mg PO Q4H PRN PRN Reason: PAIN OR TEMPERATURE Atorvastatin Calcium (Lipitor*) 40 mg PO BEDTIME [facility] Last Admin: 05/08/17 21:45 Dose: 40 mg Bisacodyl (Dulcolax Supp*) 10 mg SD DAILY PRN PRN Reason: constipation Diphenhydramine HCl (Benadryl Iv*) 25 mg IV Q6H PRN PRN Reason: itching Docusate Sodium (Colace Cap*) 100 mg PO BID [facility] Last Admin: 05/09/17 08:13 Dose: 100 mg Enoxaparin Sodium (Lovenox(*)) 30 mg SUBCUT Q24H [facility] Last Admin: 05/08/17 11:39 Dose: 30 mg Lactated Ringer's (Lactated Ringers 1000 Ml Bag*) 1,000 mls @ 100 mls/hr IV PER RATE [facility] Last Admin: 05/08/17 01:52 Dose: 100 mls/hr Lactulose (Lactulose*) 30 ml PO Q6H PRN PRN Reason: constipation Last Admin: 05/09/17 08:19 Dose: 30 ml Metoprolol Tartrate (Lopressor Tab*) 50 mg PO BID [facility] Last Admin: 05/09/17 08:13 Dose: 50 mg Morphine Sulfate (Morphine Inj (Syringe)*) 2 mg IV Q2H PRN PRN Reason: PAIN - UNCONTROLLED Multivitamins (Theragran Tab*) 1 tab PO DAILY [facility] Last Admin: 05/09/17 08:13 Dose: 1 tab Ondansetron HCl (Zofran Inj*) 4 mg IV Q6H PRN PRN Reason: nausea Oxycodone HCl (Roxycodone Tab*) 10 mg PO Q4H PRN PRN Reason: PAIN - SEVERE Oxycodone/Acetaminophen (Percocet 5/325 Tab*) 1 tab PO Q4H PRN PRN Reason: PAIN - MODERATE Last Admin: 05/08/17 04:07 Dose: 1 tab Oxycodone/Acetaminophen (Percocet 5/325 Tab*) 2 tab PO Q4H PRN PRN Reason: PAIN - MODERATE TO SEVERE Last Admin: 05/09/17 08:14 Dose: 2 tab Pharmacy Profile Note (Coumadin Daily Reminder*) 1 note FOLLOW UP 1700 JESSICA Last Admin: 05/08/17 18:02 Dose: 1 note Warfarin Sodium (Coumadin Tab(*)) 8 mg PO ONCE@1700 ONE PRN Reason: Protocol Stop: 05/09/17 17:01 Vital Signs - 8 hr 05/09/17 05/09/17 05/09/17 03:37 07:53 08:14 Temperature 98.5 F 100.3 F Pulse Rate 79 85 Respiratory 16 16 18 Rate Blood Pressure 159/93 157/79 (mmHg) O2 Sat by Pulse 98 100 Oximetry Oxygen Devices in Use Now: None Appearance: Well appearing, NAD Eyes: No Scleral Icterus, PERRLA Ears/Nose/Mouth/Throat: NL Teeth, Lips, Gums, Mucous Membranes Moist Neck: NL Appearance and Movements; NL JVP, Trachea Midline Respiratory: Symmetrical Chest Expansion and Respiratory Effort, Clear to Auscultation Cardiovascular: NL Sounds; No Murmurs; No JVD, RRR, No Edema - Soft, non-tender , hypoactive BS, passing flatus Abdominal: No Hepatosplenomegaly Extremities: No Edema, No Clubbing, Cyanosis Skin: No Rash or Ulcers - Dressing CDI Neurological: Alert and Oriented x 3, NL Sensation, NL Muscle Strength and Tone Nutrition: Taking PO's Result Diagrams: 05/09/17 05:45 05/08/17 05:47 Assess/Plan/Problems-Billing Assessment: This is a 67 year old male with hx of CAD, MD, CABG, HTN and OA, POD2 s/p RTHA. - Patient Problems (1) Osteoarthritis of right hip Code(s): M16.11 - UNILATERAL PRIMARY OSTEOARTHRITIS, RIGHT HIP SNOMED Code(s) : 380165218451411 Comment: - POD2, [facility] POC as per ortho - OOB with PT, hip precautions, pain control as needed - DVT prophy with lovenox/coumadin - Continue bowel regimen while on narcotic pain management and at discharge - Labs stable (2) CAD (coronary artery disease) Code(s): I25.10 - ATHSCL HEART DISEASE OF [place] CORONARY ARTERY W/O ANG PCTRS SNOMED Code(s): 65333374 Comment: - Currently stable - Restart betablocker - Restart ASA when clear by surgery (3) HLD (hyperlipidemia) Code(s): E78.5 - HYPERLIPIDEMIA, UNSPECIFIED SNOMED Code(s): 16556793 Comment: - Continue statin (4) HTN (hypertension) Code(s): I10 - ESSENTIAL (PRIMARY) HYPERTENSION SNOMED Code(s): 52615994 Comment: - Restart BB, ramipril and HCTZ - Postop hypotension resolved Status and Disposition: Medically optimized for discharge home as per ortho surgery. Counseling and/or Coordination of Care Minutes: Coordinated with patient and staff. Time spent >45mins
[2017-05-09] MEDS: Enoxaparin(*) 30 MG/0.3 ML SYR SUBCUT SCH (11:37)
[2017-05-09 11:57] VITALS: BP 141/70
[2017-05-09] MEDS ORDERED: Cyclobenzaprine TAB* 10 MG PO ONE (13:00)
--- NOTE | 2017-05-09 14:48 | DS ---
AMENDED REPORT NOW INCLUDES COSIGNER DESIGNATION - ESIGNED BEFORE ADJUSTMENT DISCHARGE SUMMARY: DATE OF ADMISSION: 05/07/17 DATE OF DISCHARGE: 05/09/17 PROVIDER: Yvette Moore MD * (DICTATED BY GREY REGALADO) ADMITTING DIAGNOSIS: Severe end-stage osteoarthritis of the right hip. DISCHARGE DIAGNOSIS: Severe end-stage osteoarthritis of the right hip, status post right total hip arthroplasty. SECONDARY DIAGNOSES: 1. Hypertension. 2. High cholesterol. 3. Coronary artery disease. HISTORY OF PRESENT ILLNESS: Mr. Vidal is a 67-year-old gentleman with complaints of ongoing right hip pain. He failed conservative management and elected to proceed with a right total hip arthroplasty. HOSPITAL COURSE: On 05/07/17, the patient was admitted to [facility] and underwent a successful right total hip arthroplasty with Dr. Moore. He recovered briefly in the postanesthesia care unit. Postoperative x-rays were satisfactory. He was then transferred to the short stay surgical unit in stable condition. On postop day 1, the patient's pain was controlled with IV and oral pain medications. He had mild acute blood loss anemia and had an H and H of 10.8 and 33. INR was 1.17 with 6 mg of Coumadin previously. He was able to participate in physical therapy with the use of a rolling walker. On postop day 2, the patient's pain was controlled with oral pain medication. He continued to have stable acute blood loss anemia with an H and H of 10.5 and 31. INR was 1.22 with 6 mg of Coumadin previously. He was able to ambulate independently with the use of a rolling walker and participate in physical therapy. He was found stable for discharge home at this point. Throughout the hospital course, the patient remained normotensive and afebrile. DISCHARGE CONDITION: Stable. DISCHARGE MEDICATIONS: The patient will be discharged home with: 1. Percocet 5/325 mg 1 to 2 tabs p.o. q.4 to 6 hours p.r.n. pain. 2. Cyclobenzaprine 10 mg p.o. t.i.d. p.r.n. muscle spasms. 3. Colace 100 mg p.o. b.i.d. p.r.n. constipation. 4. Aspirin 325 mg p.o. b.i.d. The patient will resume his home medications of: 1. Altace 20 mg p.o. daily. 2. Simvastatin 80 mg p.o. q.h.s. 3. Metoprolol tartrate 50 mg p.o. b.i.d. 4. Hydrochlorothiazide 12.5 mg p.o. daily. DISCHARGE INSTRUCTIONS: The patient was advised to continue with posterior hip precautions. He is not to cross his legs, flex the hip past 90 or internally rotate the leg. He will have visiting nurse service for wound checks. He will also have home physical therapy. He will follow up in the office 10 to [address] Moore. Wound care; the patient will keep his dressing clean, dry, and intact until postop day 4. At that time, he may remove the dressing and shower normally. A dry dressing may be reapplied. He is understanding not to submerge the incision in a bath tub, hot tub, or swimming pool. He is understanding to call the office with any questions or concerns. He will go directly to the emergency room with any chest pain, shortness of breath, fever greater than 101.5, calf pain or swelling. All of his questions were answered to his full satisfaction. GREY REGALADO [id number]/[facility] #: [id number] MTDJacob
[2017-05-09] MEDS ORDERED: Warfarin TAB(*) 4 MG PO ONE (17:00)
== END 2017-05-09 14:05 | disposition home health service (06) | DRG 301 ==
LOC: AA 07:06 → SSU 14:32
PROVIDERS: ADMIT Orthopaedic Surgery Adult Reconstructive Orthopaedic Surgery; ATTEND Orthopaedic Surgery Adult Reconstructive Orthopaedic Surgery
PROC: 0SR904A Replacement of Right Hip Joint with Ceramic on Polyethylene Synthetic Substitute, Uncemented, Open Approach (ICD-10-PCS; principal; 2017-05-07 09:00)
DX: M16.11 Unilateral primary osteoarthritis, right hip (principal); E66.9 Obesity, unspecified; D62 Acute posthemorrhagic anemia; I10 Essential (primary) hypertension; E78.00 Pure hypercholesterolemia, unspecified; M25.751 Osteophyte, right hip; I25.10 Atherosclerotic heart disease of native coronary artery without angina pectoris; Z79.82 Long term (current) use of aspirin; I25.2 Old myocardial infarction; Z95.1 Presence of aortocoronary bypass graft; Z82.49 Family history of ischemic heart disease and other diseases of the circulatory system; Z82.61 Family history of arthritis; Z82.3 Family history of stroke; Z80.9 Family history of malignant neoplasm, unspecified; Z95.5 Presence of coronary angioplasty implant and graft; Z87.891 Personal history of nicotine dependence; Z68.36 Body mass index [BMI] 36.0-36.9, adult
CPT/HCPCS: 36415; 80048; 85014; 85018; 85610; A9270-GY; C1713; C1776; J0690; J1100; J1650; J1885; J2250; J2405; J2704; J3010

== ENCOUNTER 2017-08-20 12:33 | Inpatient (IN) | payer BC, MEDICARE ==
--- NOTE | 2017-08-13 15:54 | HP ---
HISTORY AND PHYSICAL: DATE OF ADMISSION/SURGERY: 08/20/17 SURGEON: Yvette Moore MD * (DICTATED BY GREY RICHARD) PROCEDURE: Left total hip arthroplasty. CHIEF COMPLAINT: Left hip pain. HISTORY OF PRESENT ILLNESS: Mr. Vidal is a 67-year-old gentleman who complains of left hip pain secondary to end-stage osteoarthritis. He has failed conservative management and elected to proceed with a left total hip arthroplasty, which is scheduled for 08/20/[address] Moore. PAST MEDICAL HISTORY: Prior NH, hypertension, high cholesterol. PAST SURGICAL HISTORY: CABG and right total hip arthroplasty. CURRENT MEDICATIONS: 1. Hydrochlorothiazide 12.5 mg daily. 2. Ramipril 10 mg daily. 3. Simvastatin 80 mg daily. 4. Metoprolol 50 mg daily. 5. Aspirin 325 daily. ALLERGIES: None. FAMILY HISTORY: Coronary artery disease, RA, stroke, cancer, hypertension. SOCIAL HISTORY: This 67-year-old gentleman lives with his . He does not smoke, use drugs or alcohol. REVIEW OF SYSTEMS: A complete 14-point review of systems was reviewed with the patient and it was all negative or noncontributory. PHYSICAL EXAMINATION GENERAL: He is well developed, well nourished, in no acute distress. HEENT: Normocephalic, atraumatic. NECK: Supple. No palpable lymph nodes. PULMONARY: Lungs are clear to auscultation bilaterally. CARDIO: Regular rate and rhythm. Strong S1 and S2. ABDOMEN: Soft, nontender, nondistended. NEUROLOGIC: He is alert and oriented x3. Cranial nerves II through XII are intact. MUSCULOSKELETAL: Left lower extremity, the skin is intact. There are no open wounds or abrasions. He walks with an antalgic type gait, favoring his right hip. He had decreased internal and external rotation of the left hip. He has 2 + dorsalis pedis pulses, intact sensation, and his lower extremity muscular group strengths are intact at 5/5. ASSESSMENT AND PLAN: Mr. Vidal is a 67-year-old gentleman with complaints of left hip pain secondary to end-stage osteoarthritis. He has failed conservative management and elected to proceed with a left total hip arthroplasty, which is scheduled for 08/20/[address] Moore discussed the risks and the benefits of the surgery at today's visit and all of his questions were answered. He currently has a prescription for Percocet for pain. DVT prophylaxis will be determined at the time of discharge and he will follow with Dr. Moore 2 weeks after the surgery. GREY RICHARD [id number]/[facility] #: [id number] ASHLEY
[~2017-08-20 12:33] MED LIST changes: +DiMENhydriNATE IV* 50 MG/ML VIAL IV PUSH PRN; +Morphine INJ* 2 MG/ML 1 ML CARPUJECT IV PRN; +Naloxone* 0.4 MG/ML 1 ML VIAL IV PRN; +PROCHLORPERAZINE INJ 5 MG/ML 2 ML VIAL IV PRN; +Scopolamine 1.5 mg* PATCH TRANSDERM PRN; +fentaNYL* 50 MCG/ML 2 ML VIAL (100 MCG VIAL) IV PRN
[2017-08-20] MEDS ORDERED: Famotidine IV* 10 MG/ML 2 ML (20 mg) ONE (12:41)
[2017-08-20] MEDS ORDERED: Gabapentin CAP(*) 300 MG ONE (12:41)
[2017-08-20] MEDS ORDERED: ceFAZolin 2 GM PREMIX (*) 2 GM/50 ML BAG IVPB ONE (12:41)
[2017-08-20] MEDS ORDERED: ceFAZolin 1 GM in Dextrose (*) 1 GM/50 ML BAG IVPB ONE (12:56)
[2017-08-20] MEDS ORDERED: fentaNYL* 50 MCG/ML 2 ML VIAL (100 MCG VIAL) ONE (13:27)
[2017-08-20] MEDS ORDERED: Midazolam* 1 MG/ML 10 ML VIAL (10 MG) ONE (13:27)
[2017-08-20] MEDS ORDERED: Bisacodyl SUPP* 10 MG SUPP PR PRN (16:03)
[2017-08-20] MEDS ORDERED: Magnesium Hydroxide LIQ* 30 ML UDC PO PRN (16:03)
[2017-08-20] MEDS ORDERED: Acetaminophen TAB* 325 MG PO PRN (16:03)
[2017-08-20] MEDS ORDERED: Morphine INJ* 2 MG/ML 1 ML CARPUJECT IV PRN (16:03)
[2017-08-20] MEDS ORDERED: Ondansetron TAB* 4 MG PO PRN (16:03)
[2017-08-20] MEDS ORDERED: Ondansetron INJ* 2 MG/ML VIAL IV PRN (16:03)
[2017-08-20] MEDS ORDERED: oxyCODONE TAB* 5 MG TAB PO PRN (16:03)
[2017-08-20] MEDS ORDERED: Cyclobenzaprine TAB* 10 MG PO PRN (16:03)
[2017-08-20] MEDS ORDERED: oxyCODONE/Acetamin 5/325 MG* TAB PO PRN (16:03)
[2017-08-20] MEDS ORDERED: Polyethylene Glycol 3350* 17 GM PACKET PO PRN (16:03)
[2017-08-20] MEDS ORDERED: diPHENhydraMINE IV* 50 MG/ML 1 ml VIAL (BENADRYL) IV PRN (16:03)
[2017-08-20] MEDS ORDERED: Ondansetron INJ* 2 MG/ML VIAL ONE (17:35)
[2017-08-20] MEDS ORDERED: Propofol* 10 MG/ML 20 ML BTL IV PUSH ONE (17:35)
[2017-08-20] MEDS ORDERED: Dexamethasone IV* 4 MG/ML 1 ML (4 MG) ONE (17:35)
[2017-08-20] MEDS ORDERED: Ketorolac INJ* 30 MG/ML 1 ML VIAL ONE (17:35)
[2017-08-20] MEDS ORDERED: Lidocaine 2% PF * 5 ML VIAL ONE (17:36)
[2017-08-20] MEDS ORDERED: Metoprolol Tartrate IV* 1 MG/ML 5 ML VIAL ONE (17:37)
[2017-08-20] MEDS ORDERED: ROPIVACAINE 5 MG/ML 30 ML BTL (0.5%) ONE (17:50)
[2017-08-20] MEDS ORDERED: EPHEDrine (Pressors)* 50 MG/ML VIAL ONE (17:57)
[2017-08-20] MEDS ORDERED: Glycopyrrolate IV* 0.2 MG/ML 1 ML VIAL ONE (17:57)
--- NOTE | 2017-08-20 18:59 | RAD ---
INDICATION: Status post left hip total arthroplasty COMPARISON: Preoperative radiograph dated July 08, 2017 TECHNIQUE: 3 views of the left hip were obtained. FINDINGS: The left hip prosthesis is anatomically aligned in the AP and lateral projections. The right hip prosthesis is anatomically aligned in the AP projection. The visualized bones are intact and appropriately aligned. IMPRESSION: Anatomic alignment of recently installed left hip prosthesis.
[2017-08-20] MEDS: Metoprolol Tartrate TAB* 50 mg PO SCH (20:12)
[2017-08-20] MEDS: Magnesium Hydroxide LIQ* 30 ML UDC PO SCH (20:12)
[2017-08-20] MEDS: Docusate CAP* 100 MG PO SCH (20:12)
[2017-08-20] MEDS ORDERED: Warfarin TAB(*) 6 MG PO ONE (21:00)
[2017-08-20] MEDS ORDERED: Atorvastatin* 40 MG TAB PO SCH (21:00)
--- NOTE | 2017-08-20 21:16 | RAD ---
INDICATION: Intraoperative radiograph acquired during left total hip arthroplasty TECHNIQUE: An AP view of the pelvis was obtained in the operating room. FINDINGS: The components of the left hip prosthesis are anatomically aligned in the AP projection. IMPRESSION: Anatomic alignment of left hip prostheses in the AP view.
[2017-08-20] MEDS ORDERED: Aspirin TAB* 325 MG PO ONE (22:00)
[2017-08-20] MEDS: ceFAZolin 1 GM in Dextrose (*) 1 GM/50 ML BAG IVPB SCH (23:43)
[2017-08-21] MEDS: oxyCODONE/Acetamin 5/325 MG* TAB PO PRN ×3 (01:49→15:30)
--- NOTE | 2017-08-21 04:27 | CONS ---
[facility] MEDICINE CONSULTATION REPORT: DATE OF CONSULT: 08/20/17 ATTENDING PHYSICIAN: Dr. Yvette Moore. CONSULTING PHYSICIAN: Brian Pandya MD (dictation provided by Itzel Watson NP). PRIMARY DIAGNOSIS: Left total hip arthroplasty. HISTORY OF PRESENT ILLNESS: Mr. Vidal is a 67-year-old male with a past medical history of prior SC with CABG, hypertension, high cholesterol and a previous right total hip arthroplasty, who presented to the hospital on for a planned left total hip arthroplasty. Please see dictated H and P from Dr. Moore for complete details. In brief, the patient states he was doing quite well prior to coming in for surgery other than his left hip pain. He denies any chest pain or shortness of breath with his normal level of activity. The patient went for the left hip arthroplasty today and is reported to have tolerated the procedure well. PAST MEDICAL HISTORY: 1. Coronary artery disease with SC and history of CABG. 2. Hypertension. 3. Hyperlipidemia. 4. History of right total hip arthroplasty. MEDICATIONS: Medications outpatient are: 1. Hydrochlorothiazide 12.5 mg p.o. daily. 2. Ramipril 10 mg p.o. daily. 3. Simvastatin 80 mg p.o. daily. 4. Metoprolol tartrate 50 mg p.o. b.i.d. 5. Oxycodone p.r.n. 6. Docusate 100 mg p.o. b.i.d. ALLERGIES: No known drug allergies. FAMILY HISTORY: History of coronary artery disease, rheumatoid arthritis, stroke, cancer and hypertension. SOCIAL HISTORY: The patient lives with his . There is no history of alcohol, tobacco or drug use. REVIEW OF SYSTEMS: A 14-point review of systems was completed with Mr. Vidal and all those not mentioned above were negative. PHYSICAL EXAMINATION: Vital Signs: Temperature 96.8 pulse rate 61, respiratory rate 18, O2 saturation 100% on room air, blood pressure 142/77. General: Mr. Vidal is sitting up on the chair, playing cards with his . Neuro: He is alert, he is oriented x3. He moves all extremities equally. There is no facial asymmetry or focal weakness. Extraocular movements are intact. Heart: S1, S2. No murmur, rub, or gallop and regular. Lungs: Clear to auscultation bilaterally with no accessory muscle use and good aeration. The abdomen is soft, nontender with bowel sounds positive x4. Extremities: No cyanosis or edema. Skin: Intact. DIAGNOSTIC STUDIES/LAB DATA: Preoperatively, WBC 7.3, hemoglobin 13.9, hematocrit 41, platelet count 254. Sodium 136, potassium 4.2, chloride 99, serum bicarbonate 29, BUN 20, creatinine 1.12, glucose 94. ASSESSMENT AND PLAN: Mr. Vidal is a 67-year-old male with a past medical history of coronary artery disease with SC and CABG, hypertension, hyperlipidemia and a right total hip arthroplasty, who presents today to the hospital for a left total hip arthroplasty with Dr. Moore. Our plans and recommendations are as follows: 1. Left total hip arthroplasty: Management will be per orthopedic services. The patient on PT and OT. We will monitor his H and H closely. He will have pain medications with a bowel regimen. 2. History of coronary artery disease. The patient is asymptomatic. He will continue on his home metoprolol and Ramipril. 3. Hypertension. Continue hydrochlorothiazide, metoprolol, Ramipril. 4. Hyperlipidemia. Continue Simvastatin. 5. Code status is full code. 6. DVT prophylaxis: The patient is currently on Lovenox and warfarin, but states that he does not want to take warfarin and did not take it with his right total hip arthroplasty. I recommended that he discuss this directly with Dr. Moore and her team. TIME SPENT: Approximately 60 minutes were spent on the consultation of this patient, more than half the time spent with the patient at the bedside reviewing the events leading up to this hospitalization, performing the physical examination, and reviewing the plan of care. ITZEL WATSON, CHRISTY [id number]/[facility] #: [id number] ASHLEY
[2017-08-21 05:56] LABS: Hematocrit 34 % (42-52); Hemoglobin 11.5 g/dl (14.0-18.0); Mean Platelet Volume 7.3 um3 (7.4-10.4); Platelet Count 206 10^3/ul (150-450)
[2017-08-21 06:02] LABS: INR 1.06 (0.77-1.02)
[2017-08-21] MEDS: ceFAZolin 1 GM in Dextrose (*) 1 GM/50 ML BAG IVPB SCH ×2 (07:56→15:29)
--- NOTE | 2017-08-21 08:34 | PN ---
Progress Note - Progress Note Date of Service: 08/21/17 SOAP: Subjective: 67 y/o male s/p L SHAZIA by DR. Moore 08/20/2017. Patient doing well, pain controlled, working well with PT, OK with D/C this afternoon after second PT session. VSS, afebrile overnight. Objective: General- Well appearing, NAD, AO, sitting in chair comfortably MSK- LLE- DF/PF = b/l, PT 2+, negative homans sign, + non-pitting edema b/l, dressing c/d/i, no induration of thigh, SITLT LLE. Vital Signs Temp 98.5 F 08/21/17 11:43 Pulse 72 08/21/17 11:43 Resp 16 08/21/17 11:43 BP 108/64 08/21/17 11:43 Pulse Ox 95 08/21/17 11:43 Intake & Output 08/20/17 08/21/17 08/21/17 18:59 06:59 18:59 Intake Total 2700 4454 75 Output Total 825 1000 Balance 1875 3454 75 Weight 120.656 kg Intake: IV Fluids 2700 904 75 3GM CEFAZOLIN 100 ABX - CEFAZOLIN 50 55 LR 854 20 lr 2600 Oral 3550 Output: Gonzalez 525 1000 Estimated Blood Loss 300 Assessment: Stable 67 y/o male s/p L SHAZIA by DR. Moore 08/20/2017. Plan: - DVT prophylaxis- lovenox in house, patient refusing coumadin- ASA at home - Continue PT/ OT - Follow up with Dr. Moore within 10-14 days - H&H - stable - post-op IV ABX - completed - D/C home today after PT if completed well Acetaminophen (Tylenol Tab*) 650 mg PO Q4H PRN PRN Reason: PAIN OR TEMPERATURE Atorvastatin Calcium (Lipitor*) 40 mg PO BEDTIME JESSICA Last Admin: 08/20/17 20:12 Dose: 40 mg Bisacodyl (Dulcolax Supp*) 10 mg OR DAILY PRN PRN Reason: constipation Cyclobenzaprine HCl (Flexeril Tab*) 10 mg PO TID PRN PRN Reason: SPASMS Last Admin: 08/20/17 23:43 Dose: 10 mg Diphenhydramine HCl (Benadryl Iv*) 12.5 mg IV Q6H PRN PRN Reason: PRURITIS Docusate Sodium (Colace Cap*) 100 mg PO BID [facility] Last Admin: 08/21/17 08:45 Dose: 100 mg Enoxaparin Sodium (Lovenox(*)) 40 mg SUBCUT Q24H [facility] Last Admin: 08/21/17 11:28 Dose: 40 mg Hydrochlorothiazide (Hydrodiuril Tab*) 12.5 mg PO QAM [facility] Last Admin: 08/21/17 08:46 Dose: 12.5 mg Cefazolin Sodium/Dextrose (Kefzol 1 Gm In Dextrose Duplex (*)) 1 gm in 50 mls @ 200 mls/hr IVPB Q8H [facility] Stop: 08/21/17 15:44 Last Admin: 08/21/17 07:56 Dose: 200 mls/hr Lactated Ringer's (Lactated Ringers 1000 Ml Bag*) 1,000 mls @ 100 mls/hr IV PER RATE [facility] Last Admin: 08/20/17 20:12 Dose: 100 mls/hr Lactulose (Lactulose*) 30 ml PO Q6H PRN PRN Reason: constipation Magnesium Hydroxide (Milk Of Magnesia Liq*) 30 ml PO BID [facility] Last Admin: 08/21/17 11:28 Dose: 30 ml Magnesium Hydroxide (Milk Of Magnesia Liq*) 30 ml PO Q6H PRN PRN Reason: constipation Metoprolol Tartrate (Lopressor Tab*) 50 mg PO BID [facility] Last Admin: 08/21/17 08:45 Dose: 50 mg Morphine Sulfate (Morphine Inj (Syringe)*) 2 mg IV Q2H PRN PRN Reason: PAIN Ondansetron HCl (Zofran Inj*) 4 mg IV Q6H PRN PRN Reason: nausea Ondansetron HCl (Zofran Tab*) 4 mg PO Q6H PRN PRN Reason: NAUSEA Oxycodone HCl (Roxycodone Tab*) 10 mg PO Q4H PRN PRN Reason: SEVERE PAIN Last Admin: 08/21/17 06:26 Dose: 10 mg Oxycodone/Acetaminophen (Percocet 5/325 Tab*) 2 tab PO Q4H PRN PRN Reason: PAIN Last Admin: 08/21/17 11:27 Dose: 2 tab Oxycodone/Acetaminophen (Percocet 5/325 Tab*) 1 tab PO Q4H PRN PRN Reason: PAIN Pharmacy Profile Note (Scopolamine Patch Remove*) 1 note PATCH OFF Q72H ONE Stop: 08/23/17 05:46 Pharmacy Profile Note (Coumadin Daily Reminder*) 1 note FOLLOW UP 1700 [facility] Polyethylene Glycol/Electrolytes (Miralax*) 17 gm PO DAILY PRN PRN Reason: Constipation Ramipril (Altace Cap*) 20 mg PO [facility] Last Admin: 08/21/17 08:46 Dose: 20 mg
[2017-08-21] MEDS: Metoprolol Tartrate TAB* 50 mg PO SCH (08:45)
[2017-08-21] MEDS: Docusate CAP* 100 MG PO SCH (08:45)
[2017-08-21] MEDS ORDERED: Hydrochlorothiazide TAB* 25 MG PO SCH (09:00)
[2017-08-21] MEDS ORDERED: Ramipril CAP* 10 MG PO SCH (09:00)
[2017-08-21] MEDS: Magnesium Hydroxide LIQ* 30 ML UDC PO SCH (11:28)
[2017-08-21] MEDS ORDERED: Enoxaparin(*) 40 MG/0.4 ML SYR SUBCUT SCH (12:00)
[2017-08-21 12:03] VITALS: BP 108/64
--- NOTE | 2017-08-22 00:17 | OP ---
OPERATIVE REPORT: DATE OF OPERATION: 08/20/17 DATE OF : 52 ATTENDING SURGEON: Yvette Moore MD [employer] PROFESSOR: GREY Camacho Mr. Zepeda did help throughout the procedure with preparation of the leg, wound retraction, and manip ulation of the hip. ANESTHESIOLOGIST: Dr. Hearn. ANESTHESIA: Spinal. PRE-OP DIAGNOSIS: Severe end-stage degenerative osteoarthritis of the left hip joint. POST-OP DIAGNOSIS: Severe end-stage degenerative osteoarthritis of the left hip joint. OPERATIVE PROCEDURE: Left total hip arthroplasty. HARDWARE USED: This is uncemented Taylor total hip hardware. For the cup, a Tritanium cluster hole shell 56E. A single 25-mm cancellous bone screw was used. For the liner, a Trident X3 10-degree harjeet yethylene insert 36E. For the stem, an Accolade TMZF size 3.5 with a 127-degree neck. For the head, a Biolox delta ceramic V40 femoral head 36 +2.5. COMPLICATIONS: None. ESTIMATED BLOOD LOSS: 300 cc. SPECIMENS: Femoral head and acetabular reaming sent to Pathology. BRIEF HISTORY/INDICATION: Mr. Vidal is a 67-year-old gentleman with years of increasingly severe le ft hip pain. He failed conservative treatment with intra- articular injection, physial therapy, use of ambulatory assistive devices, the anti- inflammatories, and pain medications. Due to continued pa in and decreased quality of life, he elected to undergo left total hip arthroplasty. Radiographs con firmed severe arthritis. Informed consent was obtained from the patient. He understood the risks of the procedure, included but were not limited to bleeding, infection, damage to nearby structures, co ntinued pain, need for further surgery, intraoperative fracture, nerve palsy, hardware failure or loo sening, dislocation, leg length discrepancy, stroke, heart attack, blood clot and . He wished t o proceed. INTRAOPERATIVE FINDINGS: Intraoperatively, the patient had complete loss of cartilage along the femo ral head and acetabulum. He had significant osteophyte formation around the acetabulum. DESCRIPTION OF PROCEDURE: Mr. Vidal was identified in the preanesthesia unit. His left lower extrem ity was marked as the correct operative side. Informed consent was signed and placed in the chart. The patient was taken to the operating room and placed under spinal anesthesia. A Gonzalez catheter was placed. The patient was placed in the right lateral decubitus position on the peg board. All bony prominences were well padded. Left lower extremity was prepped and draped in the usual sterile fashi on. Preop time-out was made to correctly identity the patient's side and site. Appropriate perioper ative antibiotics were given within 1 hour of incision. A standard posterior hip incision was made with a 10 blade. Electrocautery was used to dissect throu gh the subcutaneous fat to the lateral fascial layer. A new 10 blade was used to make in incision in the lateral fascial layer in line with the skin incision. A Charnley retractor was placed. The pir iformis and conjoint tendons were identified. These were elevated off the posterolateral femur using electrocautery and tagged with #5 Ethibond. Next, the electrocautery was used to make a standard po sterolateral capsular flap. The hip was carefully dislocated. Lesser troch to the center of the femo ral head measured 62 mm. Oscillating saw was used to make the appropriate femoral neck cut. Femoral head was carefully removed. The femur was retracted anteriorly. After appropriate placement of retractor, the acetabulum was wel l visualized. Long-handled knife was used to sharply remove any remaining labrum from the acetabular rim. The acetabulum was sequentially reamed up to a size 55. A 55 reamer had established subchondr al bone bed. The 55 trial had good fit. Final implant chosen was a 56E Tritanium cluster hole shell . This was impacted into the acetabulum without difficulty. A single 25-mm Torx screw was placed in the superior posterior quadrant for extra stability. The liner chosen was a Trident X3 10-degree po lyethylene insert 36B. This was locked into position in the acetabulum. Stability of the insert was checked and rechecked and noted to be stable. Next, attention was turned to preparation of the proximal femur. A canal finder was used to enter th e proximal femur. Femur was sequentially broached up to a size 3.5. A 3.5 broach had good fit and a ppropriate anteversion. A 127-neck trial was chosen as well as a 36 +0 femoral head. Lesser troch t o the center of the femoral head measured 60 mm; therefore, a 36 +2.5 head trial was chosen. Lesser troch to the center of the femoral head measured 62 mm. The hip was reduced and taken through a rang e of motion. The hip was stable in all positions. There was good soft tissue tension and appropriat e leg lengths. The hip was carefully dislocated. All trials were removed. Final implant chosen was an Accolade TMZ F size 3.5 with a 127-degree neck. Final head chosen was a Biolox ceramic V40 femoral head 36 +2.5. The femoral stem was impacted into the canal without difficulty. The femoral head was impacted on t o the femoral neck. The hip was reduced and taken through a range of motion. The hip was stable in a ll positions. There was good soft tissue tension and appropriate leg lengths. The hip was copiously irrigated with sterile saline. Previously tagged capsule and tendons were reapproximated to the pos terolateral femur through 2 trochanteric drill holes. The lateral fascial layer was closed using int errupted #1 Vicryls. The rest of the incision was closed in a layered fashion using 0 and 2-0 Vicryls . Skin was closed using running 3-0 Monocryl and Dermabond. Sterile Adaptic, 4x4s, and paper tape we re used to cover the incision. The patient's anesthesia was reversed without difficulty. He was taken to the PACU in stable conditi on. Intended weightbearing will be weightbearing as tolerated. Intended DVT prophylaxis will be Coum nadine with a Lovenox bridge. [id number]/[facility] #: [id number]
[2017-08-23] MEDS ORDERED: Scopolamine PATCH Remove* 1 NOTE MISC PATCH OFF ONE (05:45)
== END 2017-08-21 16:10 | disposition home health service (06) | DRG 301 ==
LOC: OR 12:33 → SSU 16:03
PROVIDERS: ADMIT Orthopaedic Surgery Adult Reconstructive Orthopaedic Surgery; ATTEND Orthopaedic Surgery Adult Reconstructive Orthopaedic Surgery
PROC: 0SRB04A Replacement of Left Hip Joint with Ceramic on Polyethylene Synthetic Substitute, Uncemented, Open Approach (ICD-10-PCS; principal; 2017-08-20 15:00)
DX: M16.12 Unilateral primary osteoarthritis, left hip (principal); I10 Essential (primary) hypertension; E78.00 Pure hypercholesterolemia, unspecified; M17.0 Bilateral primary osteoarthritis of knee; E66.9 Obesity, unspecified; I25.119 Atherosclerotic heart disease of native coronary artery with unspecified angina pectoris; M25.752 Osteophyte, left hip; Z96.641 Presence of right artificial hip joint; Z82.49 Family history of ischemic heart disease and other diseases of the circulatory system; Z82.61 Family history of arthritis; Z82.3 Family history of stroke; Z80.9 Family history of malignant neoplasm, unspecified; I25.2 Old myocardial infarction; Z95.1 Presence of aortocoronary bypass graft; Z95.5 Presence of coronary angioplasty implant and graft; Z72.89 Other problems related to lifestyle; Z87.891 Personal history of nicotine dependence; Z68.37 Body mass index [BMI] 37.0-37.9, adult
CPT/HCPCS: 36415; 72170; 80048; 85014; 85018; 85049; 85610; A9270-GY; C1713; C1776; G8978-GP-CI; G8978-GP-CJ; G8979-GP-CH; G8979-GP-CI; G8980-GP-CI; G8987-GO-CI; G8988-GO-CI; G8989-GO-CI; J0690; J1100; J1650; J1885; J2250; J2405; J2704; J2795; J3010; J3490